=== PATIENT | male | born 1945 | race Caucasian/White ===

== ENCOUNTER 2016-12-18 14:29 | Emergency (ER) | payer BC ==
[2016-12-18] VITALS (8 sets, daily range): BP systolic 109–134; BP diastolic 74–114
[~2016-12-18] VITALS: Ht 177.8 cm; Wt 114.2 kg
[2016-12-18 14:54] LABS: BASOPHIL COUNT 0.1 K/uL (0-0.1); EOSINOPHIL (%) 0.3 % (0-5); HEMATOCRIT 49.7 % (38.0-50.0); IMMATURE GRANULOCYTE (%) 0.2 % (0.0-0.7); IMMATURE GRANULOCYTE COUNT 0.2 K/uL; LYMPHOCYTE COUNT 2.7 K/uL (1.0-2.8); MCH 30.2 PG (29.0-34.0); MCHC 33.8 G/DL (30.0-36.0); MCV 89.2 FL (86-99); MEAN PLAT.VOLUME 9.6 uM^3 (9.0-12.4); MONOCYTE COUNT 0.9 K/uL (0-0.8); NEUTROPHIL (%) 67.3 % (45-76); NEUTROPHIL COUNT 7.5 K/uL (1.8-6.4); PLATELET COUNT 305 K/uL (156-360); RBC DIS.WIDTH-CV 13.3 % (11.8-14.6); RBC DIS.WIDTH-SD 43.2 % (39-53); RED BLOOD COUNT 5.57 M/uL (4.00-5.50); WHITE BLOOD COUNT 11.2 K/uL (4.1-10.2)
[2016-12-18 15:05] LABS: CHLORIDE 104 mEq/L (99-109); POTASSIUM 4.5 mEq/L (3.7-5.4); SODIUM 140 mEq/L (136-147)
[2016-12-18 15:06] LABS: GLUCOSE 129 mg/dL (70-99)
[2016-12-18 15:08] LABS: ANION GAP 10 MEQ/L (2-14)
[2016-12-18 15:10] LABS: GFR ESTIMATE (CALCULATED) > 59 mL/min/
[2016-12-18 15:11] LABS: UREA NITROGEN (BUN) 14 mg/dL (9-23)
[2016-12-18 15:17] LABS: TROP-I INTERPRETATION NEGATIVE; TROPONIN-I 0.01 ng/mL (0.0-0.30)
[2016-12-18] MEDS ORDERED: ATENOLOL25 MG PO (18:14)
== END 2016-12-18 18:46 | disposition home or self-care (01) ==
LOC: EME 14:29
PROVIDERS: Emergency Medicine
DX: I48.92 Unspecified atrial flutter (principal); I45.9 Conduction disorder, unspecified; F17.200 Nicotine dependence, unspecified, uncomplicated
CPT/HCPCS: 71010; 80048; 84484; 85025; 93005; 99281; 99285; J0153